=== PATIENT | female | born 1985 | race Caucasian/White ===

== ENCOUNTER 2018-10-24 13:22 | Emergency (ER) | payer OTHER ==
[2018-10-24 14:14] LABS: BASO % 0.2 % (0.0-1.0); EOS # 0.1 10^3/uL (0.0-0.50); EOS % 1.1 % (0.0-3.0); HEMATOCRIT 38.8 % (36.0-47.0); HEMOGLOBIN 12.6 g/dl (12.0-15.5); IMMATURE GRANULOCYTE % 0.4 % (0-3.0); KETONE, URINE AUTO RFX 2+ mg/dL (NEGATIVE); LEUKOCYTE ESTERASE UR AUTO RFX NEGATIVE (NEGATIVE); LYMPH # 1.6 10^3/uL (1.5-4.5); LYMPH % 19.2 % (24.0-44.0); MEAN CORPUSCULAR HEMOGLOBIN 27.8 pg (27.0-33.0); MEAN CORPUSCULAR HGB CONC 32.5 g/dl (32.0-36.5); MEAN CORPUSCULAR VOLUME 85.5 fl (80.0-96.0); MONO # 0.5 10^3/uL (0.0-0.8); MONO % 5.7 % (0.0-5.0); MUCUS, URINE RFX SMALL (NEGATIVE); NEUTROPHILS # 6.2 10^3/uL (1.8-7.7); NEUTROPHILS % 73.4 % (36.0-66.0); NITRITE, URINE AUTO RFX NEGATIVE (NEGATIVE); PLATELET COUNT, AUTOMATED 243 10^3/uL (150-450); RBC, URINE AUTO RFX 2 /HPF (0-3); RED BLOOD COUNT 4.54 10^6/uL (4.00-5.40); SPECIFIC GRAVITY UR AUTO RFX 1.023 (1.002-1.035); SQUAM EPITHELIAL CELL UR AURFX 0 /HPF (0-6); WBC, URINE AUTO RFX 0 /HPF (0-3); WHITE BLOOD COUNT 8.5 10^3/uL (4.0-10.0)
== END 2018-10-24 15:26 | disposition home or self-care (01) ==
LOC: M ED 13:22
DX: O26.892 Other specified pregnancy related conditions, second trimester (principal); Z3A.15 15 weeks gestation of pregnancy; R10.2 Pelvic and perineal pain; O10.012 Pre-existing essential hypertension complicating pregnancy, second trimester; O24.419 Gestational diabetes mellitus in pregnancy, unspecified control
CPT/HCPCS: 76811

== ENCOUNTER → 2018-10-28 | Outpatient (CLI) | payer OTHER | LOC: M EKG 11:08 | DX: O24.112 Pre-existing type 2 diabetes mellitus, in pregnancy, second trimester (principal); O99.212 Obesity complicating pregnancy, second trimester; E66.9 Obesity, unspecified; Z68.43 Body mass index [BMI] 50.0-59.9, adult; Z79.4 Long term (current) use of insulin; Z3A.14 14 weeks gestation of pregnancy | CPT/HCPCS: 93005 ==

== ENCOUNTER 2019-03-31 07:02 | Inpatient (IN) | payer OTHER ==
[~2019-03-31] VITALS: Ht 157.5 cm; Wt 123.9 kg
[2019-03-31] VITALS (15 sets, daily range): BP systolic 101–140; BP diastolic 58–85
[~2019-03-31 07:02] MED LIST: ASPI81TA85 PO; FLOM0.4C39 PO; HYDR-3715 PO; LABE10TAB PO; MACR100C43 PO; PRIL20TA2 PO; PYRI1TAB5 PO; b/p med; prenata
[2019-03-31] MEDS ORDERED: INSUDET SC (07:29)
[2019-03-31] MEDS ORDERED: LR 1,000 ML IV SCH (08:56)
[2019-03-31] MEDS ORDERED: LACTATED RINGER'S 1000 ML IV STA (08:56)
[2019-03-31] MEDS ORDERED: PRENATAL VITAMINS CHEWABLE TABLET PO SCH ×2 (09:00→22:00)
[2019-03-31] MEDS ORDERED: miSOPROStol 25 MCG 1/4 TAB (S0191) As Ordered ONE (09:08)
--- NOTE | 2019-03-31 09:42 | HPEPDOC ---
Obstetrical History & Physical General Date of Admission March 31, 2019 at 07:02 History of Present Illness Julianna is a 34yo with SIUP at 38w3d who presents for IOL for well contr olled Class B diabetes diagnosed with this on insulin (levemir and humalog), CHTN (no meds other than ASA until 36wk), and BMI 52.3. She feels well. Took her insulin this morning and had an Atkins bar for breakfast. Good movement. No regular ctx/LOF/VB. Chief Complaint: Induction of labor Care Care: Good Care Dating Final EDC: April 11, 2019 Final EDC by: LMP, 1st trimester (US) Antepartum Course Diagnos(e)s Class B diabetes diagnosed with this on insulin (levemir and humalog), CHTN (no meds other than ASA until 36wk), and BMI 52.3 Height (inches): 63 Pre- weight (lbs.): 295 Admission Weight (lbs.): 274 Change in Weight (lbs.): 21 (loss of weight) Past Medical History Past Obstetrical History : Past Obstetrical History: Multigravida (2006 40wk M [id number], 2014 36wk iol for oligo/A2GDM on insulin F 6lb1oz) SOCIAL MEDIA SPECIALIST History: Spontaneous , Human papillomavirus(HPV) (remote HPV pos pap, last pap April 2017 ASCUS HPV NEG), History of STD (remote hx of chlamydia) Past Medical History Medical History Class B diabetes diagnosed with this on insulin (levemir and humalog), CHTN (no meds other than ASA until 36wk), starting BMI 52.3, seasonal allergies Surgical History: Dilatation and Curettage, [place] teeth, Other (plantar fasciitis surgery, bunionectomy) Family History Significant Family History: No pertinent family hx Social History Marital Status: Psychosocial History: No pertinent psych hx * Smoker: non-smoker Alcohol: Denies Drugs: denies Imunizations Tdap status: declined Influenza Status: current Allergies Coded Allergies: No Known Allergies (Unverified , 10/24/18) Medications Scheduled Insulin Detemir (Levemir) 100 Unit/1 Ml Vial, 16 UNITS SC BID Miscellaneous Medications Omeprazole Magnesium (Prilosec Otc) 20 Mg Tab, 40 MG PO [prenata] Physical Examination Physical Examination GENERAL: Alert and oriented times three. ABDOMEN: Obese, gravid and non-tender to touch. FETUS: Is vertex (VTX) by sterile vaginal examination (SVE) EXTREMITIES: No edema BLE TAUS: cephalic presentation Vital Signs/I&O Vital Signs Date Time Temp Pulse Resp B/P (MAP) Pulse Ox O2 Delivery O2 Flow Rate FiO2 03/31/19 08:03 98.5 87 16 114/63 (80) Laboratory Data [facility] Laboratory Tests 2 03/31/19 07:06: Serology Scanned Report Hepatitis B Testing 03/31/19 08:32: Bedside Glucose (Misc Panel) 101 03/31/19 08:34: Bedside Glucose (Misc Panel) 93 Pertinent Laboratoy Data Blood Type: O+ RBC Antibody Screen: Negative HIV: Negative Hepatitis B: Negative Hepatitis C: Unknown Rapid Plasma Reagin: Nonreactive Rubella: Immune Varicella: Immune Chlamydia/Gonorrhea: Negative Group B Streptococcus: Negative Glucose Tolerance Test: 196 Anatomy Ultrasound Ultrasound Date: Dec 10, 2018 Placenta Location: Anterior Normal Anatomy: Yes Placenta Previa: No Steroid Therapy Steroid Therapy: No Vaginal Examination Dilation: 2cm Effacement: 50% Station: -3 Cervical Consistency: Medium Cervical Position: Middle Presentation: Cephalic presentation Assessment Heart Rate (FHR): 140 Variability: Moderate Accelerations: Positive Decelerations: None Tocometer Contractions: No Assessment/Plan Assessment Julianna is a 34yo with SIUP at 38w3d who presents for IOL for well controlled Class B diabetes diagnosed with this on insulin (levemir and humalog), CHTN (no meds other than ASA until 36wk), and BMI 52.3. She feels well. Took her insulin this morning and had an Atkins bar for breakfast. First fingerstick glucose value 93. Vitals wnl, benign exam. Cephalic by TAUS. SCE 2/50/-2, cervical choi bulb placed with 40cc NS and 25mcg cytotec placed PV. GBS negative. Plan Admit and orient. 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 Diet: clears/consistent carbohydrates, fingerstick glucose values q2hr in latent labor and q1hr in active labor Group B Streptococcus (GBS) negative Labs and intravenous (IV) per unit protocol. Counseled on choi bulb, cytotec, Pitocin and induction of labor (IOL). Lactated Ringers (LR): Bolus 1000 mL, then at 125 mL/hr. Anticipate normal spontaneous delivery () Candidate for epidural in active labor as desired MD Shikha Stinson Katrina D MD March 31, 2019 09:42
[2019-03-31 09:56] LABS: HEMATOCRIT 37.9 % (36.0-47.0); HEMOGLOBIN 12.4 g/dl (12.0-15.5); MEAN CORPUSCULAR HGB CONC 32.7 g/dl (32.0-36.5); MEAN CORPUSCULAR VOLUME 88.6 fl (80.0-96.0); PLATELET COUNT, AUTOMATED 182 10^3/uL (150-450); RED BLOOD COUNT 4.28 10^6/uL (4.00-5.40); WHITE BLOOD COUNT 7.9 10^3/uL (4.0-10.0)
[2019-03-31] MEDS ORDERED: miSOPROStol 25 MCG 1/4 TAB (S0191) PV ONE (10:00)
--- NOTE | 2019-03-31 12:38 | IPNPDOC ---
Text Note Date of Service The patient was seen on 03/31/19. NOTE Intrapartum Note Pt is doing well, was feeling ctx when choi bulb was in but no longer feeling them now that choi bulb is out. Last fingerstick glucose 73, she ordered small carb consistent lunch. Vitals wnl, afebrile SCE: /-2 Has been off monitor for a short time, but prior to that had Cat I FHRT with +accels/-decels/mod rhett Will plan for another dose of cytotec, 50mcg PO at 13:30 and then initiate pitocin 4 hours after that Will continue to closely monitor Continue fingerstick glucose values q2hr in latent labor and q1hr in active labor Safe to proceed Dr. Taryn Trivedi MD A-FIB/CHADSVASC A-FIB History Current/History of A-Fib/PAF?: No Current Oral Anticoagulant The: No VS,Fishbone, I+O VS, Fishbone, I+O Laboratory Tests 03/31/19 09:41 Red Blood Count 4.28, Mean Corpuscular Volume 88.6, Mean Corpuscular Hemoglobin 29.0, Mean Corpuscular Hemoglobin Concent 32.7, Red Cell Distribution Width 14.6 H Vital Signs Date Time Temp Pulse Resp B/P (MAP) Pulse Ox O2 Delivery O2 Flow Rate FiO2 03/31/19 11:15 98.5 73 18 130/85 (100) Taryn Trivedi MD March 31, 2019 12:38
[2019-03-31] MEDS ORDERED: miSOPROStol 50 MCG 1/2 TAB (S0191) PO ONE (13:30)
[2019-03-31] MEDS ORDERED: OXYTOCIN 30 UNITS IN 0.9% NaCl 500ML IV BAG (J2590) As Ordered ONE (19:52)
[2019-03-31] MEDS ORDERED: OXYTOCIN DRIP 30 UNITS in APPROPRIATE DILUENT 1 EA IV SCH (20:00)
[2019-03-31] MEDS ORDERED: OMEPRAZOLE 20 MG CAP PO SCH (21:00)
[2019-04-01] VITALS (39 sets, daily range): BP systolic 114–137; BP diastolic 59–92
[2019-04-01] MEDS ORDERED: diphenhydrAMINE INJ 50MG/ML VIAL (J1200) IV PRN (00:27)
[2019-04-01] MEDS ORDERED: REFRIGERATOR IV KEYS XX PRN (00:27)
[2019-04-01] MEDS ORDERED: EPIDURAL COMMENT XX SCH (00:27)
[2019-04-01] MEDS ORDERED: ONDANSETRON 4MG/2ML VIAL (J2405) IV PRN (00:27)
[2019-04-01] MEDS ORDERED: ePHEDrine SULFATE 25 MG/5 ML(5MG/ML) SYRINGE IV PRN (00:27)
[2019-04-01] MEDS ORDERED: FENTANYL/ROPIVACAINE/NACL BAG 100 ML EPIDURAL SCH (00:27)
[2019-04-01] MEDS ORDERED: NALOXONE INJ 0.4 MG/1 ML VIAL (J2310) IV PRN (00:27)
[2019-04-01] MEDS ORDERED: LACTATED RINGER'S 1000 ML IV PRN (00:27)
[2019-04-01] MEDS ORDERED: EPIDURAL/PCA KEYS XX PRN (00:27)
[2019-04-01] MEDS ORDERED: FENTANYL 2MCG/ML ROPIVACAINE 0.2% IN 0.9% NACL 100ML IVBAG As Ordered ONE (01:22)
--- NOTE | 2019-04-01 07:00 | DNPDOC ---
[facility] Delivery Note Delivery Note DATE OF DELIVERY: 01 Apr 2019 PREDELIVERY DIAGNOSIS: 38w4d IOLfor Class B diabetes/morbid obesity/CHTN POST DELIVERY DIAGNOSIS: Delivered. PROCEDURE: Spontaneous vaginal delivery DISH WASHER: Dr. Taryn Trivedi MD ANESTHESIA: epidural ESTIMATED BLOOD LOSS: 200 mL. FINDINGS: 7 pound 5 ounce (3310g) male , Score 9/9 DELIVERY SUMMARY: Julianna is a 34yo with SIUP who presented for IOL at 38w4d for well controlled Class B diabetes diagnosed with this on insulin (levemir and humalog), CHTN (no meds other than ASA until 36wk), and BMI 52.3. She delivered at 06:31 on 04/01/19. She received cytotec/choi bulb and then pitocin, progressed to 6cm and received an epidural. At C/C/+1 she began pushing- only pushed with 2 contractions and then head delivered OA, restituted CHRISTIAN. Left anterior shoulder delivered easily followed by posterior shoulder and corpus. was vigorous with spontaneous cry noted, placed on maternal abdomen where nose and mouth were suctioned with bulb suction. After approximately 2 minutes, cord was clamped x2 and cut by FOB. Cord blood obtained for MBT O pos. Inspection of perineum and vagina revealed right labial laceration that was reapproximated in routine fashion with 3-0 vicryl with excellent cosmesis and complete hemostasis. Uterine massage was performed, traction on the umbilical cord, placenta delivered spontaneously and intact with 3 vessel centrally inserted cord. IV pitocin was given per protocol, bimanual massage was performed and uterus then firm at u-2cm. All counts correct x2. Total hemostasis assured. Mom and were doing well when I left the room. MD Shikha Stinson Katrina D MD April 01, 2019 06:55
[2019-04-01] MEDS ORDERED: OXYTOCIN DRIP 30 UNITS in APPROPRIATE DILUENT 1 EA IV SCH (07:01)
[2019-04-01] MEDS ORDERED: DOCUSATE SODIUM 100 MG CAP PO PRN (07:15)
[2019-04-01] MEDS ORDERED: DIBUCAINE 1% OINTMENT 30GM TOP PRN (07:15)
[2019-04-01] MEDS ORDERED: IBUPROFEN 800 MG TAB PO PRN (07:15)
[2019-04-01] MEDS ORDERED: RHOGAM 300 MCG (1500 IU) INJ (J2790) IM SCH (07:15)
[2019-04-01] MEDS ORDERED: IBUPROFEN 600 MG TAB PO PRN (07:15)
[2019-04-01] MEDS ORDERED: ACETAMINOPHEN 500 MG TAB PO PRN (07:15)
[2019-04-01] MEDS ORDERED: ACETAMINOPHEN TAB 650MG DOSE (2X325MG) PO PRN (07:15)
[2019-04-01] MEDS ORDERED: MEASLES,MUMPS,RUBELLA VACCINE INJ (MMR-II) (90707) SC SCH (07:15)
[2019-04-01] MEDS ORDERED: SLF 3 ML SYR IV PRN (10:30)
[2019-04-01] MEDS: SLF 3 ML SYR IV SCH ×2 (14:30→23:33)
[2019-04-02 06:04] VITALS: BP 130/83
[2019-04-02] MEDS: SLF 3 ML SYR IV SCH (06:13)
--- NOTE | 2019-04-02 09:25 | IPN ---
DATE: 04/02/2019 This lady is a 34-year-old, 4, now para 3, at 38 and 3, who presents for induction of labor, class B diabetic who was on Levemir and Humalog. She had chronic hypertension and other than ASA was on no medications. Her BMI is 52.3. She is GBS negative. She was counseled regarding [place] bulb, Cytotec and Pitocin for induction of labor. She had a spontaneous vaginal delivery with epidural in place of a 7 pound 5 ounce, 3310 grams, male , Apgars of 9 and 9 at one and five minutes respectively. On her second day, we discussed phlebitis, cystitis, mastitis, endometritis and cellulitis; diet, exercise and pain management; perineal, breast and wound care. Her admitting hemoglobin was 12.4, hematocrit 37.9 and platelets were 182. Her blood pressure today is 130/83, respirations 17, pulse 73, temperature 98.0. The baby is being monitored for blood sugars. They are waiting for the baby to have two normalized blood sugars or rising blood sugars, but never had a blood sugar below 40. We are awaiting medical clearance for circumcision of the male infant. The patient waiting for discharge. We discussed phlebitis, cystitis, mastitis, endometritis and cellulitis; diet, exercise and pain management; perineal, breast, and wound care. Her medications were dispensed at [facility]. She will have a 6-week checkup with [facility] upon discharge. All questions were answered.
[2019-04-02 18:00] VITALS: BP 132/79
[2019-04-03 05:43] VITALS: BP 94/57
--- NOTE | 2019-04-03 08:11 | NUR ---
Progress Note: S: Julianna is a 34yo with SIUP who presented for IOL at 38w4d for well controlled Class B diabetes diagnosed with this on insulin (levemir and humalog), CHTN (no meds other than ASA until 36wk), and BMI 52.3. She delivered at 06:31 on 04/01/19 and is now PP day 2. Doing well, pain well controlled, bleeding is decreasing, mood stable, feeding w/o assistance, urinating w/o difficulty. She desires to be dc'd today. O: VSS/AF GEN: A&Ox3; bonding PUL: CTAB CV:RRR Breast: soft; filling; nipples intact Fundus: F@U-3 Lochia: Scant rubra EXT: neg homans A/P: Julianna is a 34 y/o G4 now [id number] s/p uncomplicated vaginal delivery on 01 APRIL (IOL for well controlled Class B DM, CHTN, and BMI >40.) Routine PP course. Reviewed warning signs and return precautions. Will f/u in 2 weeks for BP re-assessment and f/u. Pt agrees with plan. Outpatient meds rx'd to [facility] outpatient pharmacy.
[2019-04-03] MEDS ORDERED: ACET-683 PO (08:15)
[2019-04-03] MEDS ORDERED: IBUP80TA PO (08:15)
[2019-04-03] MEDS ORDERED: INSUDET SC (08:15)
--- NOTE | 2019-04-09 15:08 | IPN ---
DATE OF SERVICE: 04/02/2019 This patient requested circumcision of her male . After discussing risks and benefits of circumcision, the medical and nonmedical indications, penile block, and aftercare, expressed understanding of the penile block, aftercare, and bleeding, signed the consent form. We await the clearance by the drapery and upholstery measurer.
== END 2019-04-03 11:50 | disposition home or self-care (01) | DRG 806 ==
LOC: M LDI 07:02 → M OBS 04-01 10:00
PROVIDERS: ADMIT Obstetrics & Gynecology; ATTEND Obstetrics & Gynecology
PROC: 10E0XZZ Delivery of Products of Conception, External Approach (ICD-10-PCS; principal; 2019-04-01)
PROC: 0HQ9XZZ Repair Perineum Skin, External Approach (ICD-10-PCS; 2019-04-01)
DX: O24.92 Unspecified diabetes mellitus in childbirth (principal); Z37.0 Single live birth; Z68.43 Body mass index [BMI] 50.0-59.9, adult; O10.92 Unspecified pre-existing hypertension complicating childbirth; Z3A.38 38 weeks gestation of pregnancy; Z79.4 Long term (current) use of insulin; O70.0 First degree perineal laceration during delivery; E66.01 Morbid (severe) obesity due to excess calories; O99.214 Obesity complicating childbirth